=== PATIENT | male | born 1990 | race Caucasian/White ===

== ENCOUNTER 2019-03-01 13:43 | Emergency (ER) | payer MEDICAID, OTHER ==
[~2019-03-01] VITALS: Ht 175.3 cm; Wt 79.4 kg
[2019-03-01 14:00] VITALS: BP 136/85
--- NOTE | 2019-03-01 14:21 | Emergency Room Report ---
History of Present Illness General Chief Complaint: Behavioral Complaint Source: Patient Present Illness HPI 28-year-old male presents with anxiety, he states he started taking Wellbutrin for his anxiety, he is in a treatment center for methamphetamine abuse, he states his anxiety is gotten worse with the Wellbutrin, he is requesting a benzodiazepine one-time dose, denies any chest pain shortness of breath no SI or HI severity is moderate, constant,this started 3 weeks ago. Allergies: Coded Allergies: No Known Allergies (Unverified , 03/01/19) Patient History Past Medical History: see triage record Reviewed Nursing Documentation: PMH: Agreed; PSxH: Agreed Nursing Documentation-PMH Past Medical History: No History, Except For History Of Psychiatric Problem: Yes - anxiety disorder, amphetamine abuse Review of Systems All Other Systems: negative except mentioned in HPI Physical Exam Vital Signs Date Time Temp Pulse Resp B/P (MAP) Pulse Ox O2 Delivery O2 Flow Rate FiO2 03/01/19 14:00 98.1 76 20 136/85 (102) 99 Room Air Sp02 EP Interpretation: reviewed, normal General Appearance: well appearing, no apparent distress, alert Head: normocephalic, atraumatic Eyes: bilateral eye PERRL, bilateral eye EOMI ENT: uvula midline, moist mucus membranes Neck: supple, thyroid normal, supple/symm/no masses Respiratory: lungs clear, no respiratory distress, no retraction, no accessory muscle use Cardiovascular #1: normal peripheral pulses, regular rate, rhythm, no edema, no gallop, no murmur Gastrointestinal: non tender, soft, no guarding, no rebound Musculoskeletal: normal inspection Neurologic: alert, oriented x3 Psychiatric: no suicidal/homicidal ideation, anxious Skin: no rash, warm/dry Medical Decision Making Diagnostic Impression: Primary Impression: Behavioral disorder ER Course 28-year-old male presents with anxiety will provide patient with a one-time dose of Ativan, counseled patient that we cannot give him Ativan he can see the psychiatrist tomorrow. No SI HI Patient felt better, differential diagnosis includes anxiety, psychosis, medication side effect Disposition back to the treatment center. Last Vital Signs Date Time Temp Pulse Resp B/P (MAP) Pulse Ox O2 Delivery O2 Flow Rate FiO2 03/01/19 14:00 98.1 76 20 136/85 (102) 99 Room Air Disposition: HOME, SELF-CARE Condition: Stable Referrals: [facility] Patient Instructions: Self-Destructive Behavior Additional Instructions: The patient was provided with discharge instructions, notified to follow-up with a primary care doctor and or specialist in the next 24-48 hours, and to return to the ED if they have worsening of their symptoms. Please note that this report is being documented using [employer] technology. This can lead to erroneous entry secondary to incorrect interpretation by the dictating instrument. Please note patient was provided a one-time dose of Ativan at the ER to help calm his nerves he will most likely have a positive screen if tested. Please allow patient to see psychiatrist tomorrow 03/02/2019 Magno Oates MD Mar 01, 2019 14:21
[2019-03-01] MEDS ORDERED: LORazepam 1mg tab ORAL ONE (14:30)
[2019-03-01 14:39] VITALS: BP 132/80
--- NOTE | 2019-03-01 14:39 | NUR ---
ER DISCHARGE NOTE: Pt was seen due to hearing of voices. Denies SI. Patient is cleared to be discharged per PA, pt is aox4, on room air, with stable vital signs. pt was given dc instructions, pt was able to verbalize understanding, pt id band removed. pt is able to ambulate with steady gait. pt took all belongings.
== END 2019-03-01 14:39 | disposition home or self-care (01) ==
LOC: EMR 14:16
DX: F41.9 Anxiety disorder, unspecified (principal); F91.9 Conduct disorder, unspecified; F15.10 Other stimulant abuse, uncomplicated
CPT/HCPCS: 99282